=== PATIENT | female | born 1985 | race Caucasian/White ===

== ENCOUNTER 2025-05-21 02:39 | Emergency (ER) | payer OTHER, SELFPAY ==
[2025-05-21 02:50] VITALS: BP 149/93; PULSE 82; TEMP 37.3; O2SAT 97; BMI 30.1
--- NOTE | 2025-05-21 02:54 | XR_ITS ---
[facility] [place] [id number] Patient Name: SOLOMON GOODE MRN: [id number] date: 1985 Sex: F Assigned Patient Location: ED.MAIN Current Patient Location: Accession/Order Number: [id number] Exam Date: 05/21/2025 02:57 Report Date: 05/21/2025 07:08 At the request of: TABBY ROSARIO DO Procedure: XR foot RT min 3V RIGHT FOOT - 3 views CLINICAL DATA: Pain at the first toe after being run over by a jessica cart COMPARISON: None AP, lateral and oblique views were obtained. There is no evidence of fracture or dislocation. There are no significant soft tissue abnormalities. XR/XR foot RT min 3V IMPRESSION: NO ACUTE BONY INJURY. Impression dictated by: Keyla Collado M.D. 05/21/2025 7:08 AM Dictation Location: [place] [address] Electronically authenticated by: [id number] Y Date: 05/21/2025 07:08
[2025-05-21] MEDS: IBUPROFEN 600 MG TABLET PO (02:59)
--- NOTE | 2025-05-21 03:05 | ED.GENADUL1 ---
HPI HPI - General Adult General Chief complaint: Extremity Injury, Lower Stated complaint: LOWER RIGHT EXTREMITY INJURY Time Seen by Provider: 05/21/25 02:49 Source: patient Mode of arrival: walk-in History of Present Illness HPI narrative: Patient is a 39-year-old female presenting to the emergency department from her place of work, [employer], for evaluation of a right toe injury. Patient states she was wearing steel toed boots, but accidentally ran a jessica over her right great toe. She states she had immediately pain and swelling, however the swelling has since improved since her ED arrival. She states the pain is throbbing in nature, and worse when she bears weight on it. She denies having any chronic medical conditions and takes no daily medications other than ADHD meds. Related Data Allergies Allergy/AdvReac Type Severity Reaction Status Date / Time No Known Drug Allergies Allergy Verified 05/21/25 02:50 Opioid HPI Opioid Management Most Recent Opioid Data: Last Pain Scale 3 Today, 02:59 Last MAR Pain Assessment Today, 02:59 Review of Systems ROS Status of ROS 10 or more systems reviewed and unremarkable except as noted in history and below PFSH PFSH Social History Little interest or pleasure in doing things: not at all Feeling down, depressed, or hopeless: not at all Exam Narrative Exam Narrative: CONSTITUTIONAL: Well-appearing, answering questions and following commands appropriately SKIN: Was warm and dry. EYES: Sclerae white. EARS, NOSE, THROAT: Moist oral mucosa. RESPIRATORY: Nonlabored respirations. CARDIOVASCULAR: Normal rate and regular rhythm. Cap refill less than 2 seconds in the right great toe. GASTROINTESTINAL: Abdomen is nondistended. MUSCULOSKELETAL: There is tenderness to palpation throughout the right hallux. No obvious deformity. No evidence of open injury. She is able to flex/extend the right great toe, however this is limited by pain. No tenderness at lateral/medial malleoli or base of the fifth metatarsal. No subungual hematoma. NEUROLOGIC: Patient is awake and alert. Limited strength of the right great toe secondary to pain. Sensation intact to light touch throughout the right great toe. Constitutional Vital Signs, click to edit/add: Last Vital Signs Temp 99.1 F 05/21/25 02:50 Pulse 82 05/21/25 02:50 Resp 16 05/21/25 02:50 BP 149/93 H 05/21/25 02:50 Pulse Ox 97 10/29/25 02:50 O2 Del Method Room Air 05/21/25 02:50 Course Vital Signs Vital signs: Vital Signs Temperature 99.1 F 05/21/25 02:50 Pulse Rate 82 05/21/25 02:50 Respiratory Rate 16 05/21/25 02:50 Blood Pressure 149/93 H 05/21/25 02:50 Pulse Oximetry 97 05/21/25 02:50 Oxygen Delivery Method Room Air 05/21/25 02:50 Temperature 99.1 F 05/21/25 02:50 Pulse Rate 82 05/21/25 02:50 Respiratory Rate 16 05/21/25 02:50 Blood Pressure 149/93 H 05/21/25 02:50 Pulse Oximetry 97 05/21/25 02:50 Oxygen Delivery Method Room Air 05/21/25 02:50 Medical Decision Making MDM Narrative Medical decision making narrative: Patient is a 39-year-old female presenting to the emergency department for evaluation of a right great toe injury while at work. Her vital signs on arrival are within normal limits. She is afebrile and hemodynamically stable. The right foot/great toe is neurovascularly intact. Differential diagnosis includes right hallux fracture, sprain, or contusion. X-rays were obtained. She was given oral Motrin for pain. X-rays of the right foot independently reviewed and interpreted by myself demonstrate no acute osseous abnormalities. I do believe the patient is stable for discharge. Patient's presentation is most likely consistent with bony contusion. They were instructed to follow up with her PCP should her symptoms persist. Return precautions were given including any new or worsening symptoms. Patient understands and agrees to the plan. FINAL IMPRESSION: #Acute right great toe contusion DISPOSITION: Discharged home CONDITION: Good Imaging Data Right foot xray: Attestation: I personally reviewed and interpreted this imaging study as follows: Discharge Plan Discharge Chief Complaint: Extremity Injury, Lower Clinical Impression: Toe contusion Patient Disposition: Home, Self-Care Time of Disposition Decision: 03:19 Condition: Good Mode of Transportation: Private Vehicle Print Language: Sami Instructions: Foot Contusion (ED) Referrals: Sourav Stone DO [Primary Care Provider] - 1 week
== END 2025-05-21 03:45 | disposition home or self-care (01) ==
PROVIDERS: Emergency Provider Student in an Organized Health Care Education/Training Program; PCP Family Medicine
DX: S90.111A Contusion of right great toe without damage to nail, initial encounter (principal); W31.89XA Contact with other specified machinery, initial encounter
CPT/HCPCS: 73630; 99283